=== PATIENT | female | born 1960 | race Caucasian/White ===

== ENCOUNTER 2018-11-12 17:00 | Emergency (ER) | payer OTHER ==
[2018-11-12] MEDS ORDERED: Ketorolac 10 MG Tab PO ONE (17:01)
[2018-11-12] MEDS ORDERED: Iopamidol 755 Mg/ML 100 ML Bottle IVPUSH ONE (17:15)
[2018-11-12 17:34] LABS: CHLORIDE,CL 105 mEq/L (98-106); SODIUM,NA 140 mEq/L (136-145)
[2018-11-12] MEDS ORDERED: Ondansetron 4 MG/2 ML SDV IVPUSH ONE (18:19)
[2018-11-12] MEDS ORDERED: traMADol 50 MG Tab PO ONE (18:19)
[2018-11-12] MEDS ORDERED: Ketorolac 30 MG/ML SDV IVPUSH ONE (19:50)
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
[2018-11-12] MEDS ORDERED: Take Home: Ketorolac 10 MG Tab, 4 Tab Pack PO ONE (21:29)
== END 2018-11-12 21:45 | disposition home or self-care (01) ==
LOC: CC.ED 17:00
DX: S22.31XA Fracture of one rib, right side, initial encounter for closed fracture (principal); V43.52XA Car driver injured in collision with other type car in traffic accident, initial encounter
CPT/HCPCS: 36415; 71260; 74177; 80053; 81001; 83605; 85025; 85610; 96374; 96375; 99285-25; A9270-GY; J1885; J2405; Q9967